=== PATIENT | female | born 1960 | race Two or more races ===

== ENCOUNTER 2024-10-24 09:00 | Inpatient (IN) | payer BC ==
[~2024-10-24] VITALS: Ht 162.6 cm; Wt 71.7 kg
[2024-10-24] MEDS: ONDANSETRON HCL 4MG/2ML INJ IV STA (09:51)
[2024-10-24] MEDS: MORPHINE SULFATE 4 MG/ML INJ (FOR IV/IM USE) IV STA ×2 (10:06→11:00)
[2024-10-24 11:01] LABS: CHLORIDE 93 mEq/L (98-107); POTASSIUM 3.4 mEq/L (3.5-5.1); SODIUM 134 mEq/L (136-145)
[2024-10-24 11:02] LABS: CARBON DIOXIDE 28 mEq/L (21-32)
[2024-10-24 11:03] LABS: CALCIUM 9.1 mg/dL (8.7-10.4)
[2024-10-24 11:07] LABS: CREATININE 0.5 mg/dL (0.6-1.0); GLUCOSE 105 mg/dL (70-105)
[2024-10-24 11:08] LABS: UREA NITROGEN BLOOD 7 mg/dL (9-23)
[2024-10-24 11:11] LABS: BASOPHILS % 0.9 % (0.0-2.0); EOSINOPHILS % 0.1 % (0.0-5.0); HEMATOCRIT. 38.3 % (36.0-48.0); HEMOGLOBIN. 12.7 g/dL (12.0-16.0); LYMPHOCYTES % 9.5 % (20.0-50.0); MEAN CORPUSCULAR HEMOGLOBIN 30.6 pg (28.0-32.0); MEAN CORPUSCULAR HGB CONC 33.1 g/dL (31.0-37.0); MEAN CORPUSCULAR VOLUME 92.4 fL (81.0-99.0); MEAN PLATELET VOLUME 7.7 fl (7.4-10.4); MONOCYTES % 6.3 % (2.0-8.0); NEUTROPHILS % 83.2 % (40.0-76.0); PLATELET 243 x1000/uL (130-400); RED BLOOD CELL COUNT 4.14 mill/uL (4.2-5.4); RED CELL DISTRIBUTION WIDTH 15.6 % (11.6-14.6); WHITE BLOOD COUNT 4.8 x1000/uL (4.5-11.0)
[2024-10-24 11:22] LABS: PROTHROMBIN TIME 10.8 sec (9.6-11.0)
[2024-10-24 12:00] VITALS: BP 140/92; PULSE 85; RESP 20; TEMP 36; O2SAT 95
[2024-10-24] MEDS ORDERED: MAGNESIUM/ALUMINUM HYDROXIDE/SIMETHICONE 30ML UDC PO PRN (12:15)
[2024-10-24] MEDS ORDERED: ACETAMINOPHEN 325MG TABLET PO PRN ×2 (12:15)
[2024-10-24] MEDS ORDERED: GUAIFENESIN 200MG/10ML SUGAR FREE UDC PO PRN (12:15)
[2024-10-24] MEDS ORDERED: IPRATROPIUM/ALBUTEROL 0.5-3(2.5)MG/3ML NEB HHN PRN (12:15)
[2024-10-24] MEDS: SODIUM CHLORIDE 0.9% 1,000 ML IV SCH (12:20)
[2024-10-24] MEDS: POTASSIUM CHLORIDE 20MEQ TABLET SR PO NR (12:20)
[2024-10-24] MEDS ORDERED: NALOXONE HCL 0.4MG/ML VIAL IV PRN (12:30)
[2024-10-24 13:14] VITALS: BP 140/92; PULSE 85; RESP 18; TEMP 36
[2024-10-24] MEDS: HYDROCODONE/ACETAMINOPHEN 5/325MG TABLET PO PRN (14:45)
[2024-10-24] MEDS: ONDANSETRON HCL 4MG/2ML INJ IV PRN (15:32)
[2024-10-24] MEDS: MORPHINE SULFATE 2 MG/ML INJ (NOT FOR IM USE) IV PRN (15:33)
[2024-10-24 16:00] VITALS: BP 148/65
[2024-10-24 17:38] LABS: CREATINE KINASE 218 IU/L (34-145); CREATINE KINASE MB FRACTION 5.3 ng/mL (0.5-3.6); TROPONIN I HIGH SENSITIVITY 5 ng/L (3.0-34)
[2024-10-24] MEDS: ALENDRONATE SODIUM 35MG TABLET PO SCH (18:37)
[2024-10-24 20:00] VITALS: BP 158/100; PULSE 87; RESP 18; TEMP 36.5; O2SAT 100
[2024-10-24] MEDS: ENOXAPARIN 40MG/0.4ML SYR SUBCUT SCH (20:59)
[2024-10-25] VITALS (7 sets, daily range): BP systolic 139–164; BP diastolic 80–96; PULSE 74–100; RESP 17–20; TEMP 36.4–37.1; O2SAT 97–100
[2024-10-25 00:49] LABS: CREATINE KINASE MB FRACTION 6.3 ng/mL (0.5-3.6)
[2024-10-25 01:55] LABS: CLARITY URINE CLOUDY (CLEAR); GLUCOSE URINE NEGATIVE (NEGATIVE); KETONES URINE 3+ (NEGATIVE); LEUKOCYTE ESTERASE URINE NEGATIVE (NEGATIVE); NITRITE URINE NEGATIVE (NEGATIVE); OCCULT BLOOD URINE NEGATIVE (NEGATIVE); PROTEIN URINE 1+ (NEGATIVE); SPECIFIC GRAVITY URINE 1.018 (1.005-1.030)
[2024-10-25 02:15] LABS: COLOR URINE YELLOW (YELLOW)
[2024-10-25 02:17] LABS: RBC URINE 0-2 /hpf (0-2); SQUAMOUS EPITHELIAL CELL URINE FEW /lpf (RARE/1+); WBC URINE 0-2 /hpf (0-2)
[2024-10-25 02:18] LABS: BACTERIA URINE NONE SEEN
[2024-10-25] MEDS: CLONIDINE 0.1MG TABLET PO PRN (05:06)
[2024-10-25] MEDS ORDERED: POLYMYXIN B SULFATE 500000 UNITS/VIAL ONE (06:48)
[2024-10-25] MEDS ORDERED: VANCOMYCIN HCL 1GM VIAL ONE (06:48)
[2024-10-25] MEDS ORDERED: LIDOCAINE HCL/EPINEPHRINE 1%-EPI 1:100,000 20ML VIAL ONE (06:49)
[2024-10-25] MEDS ORDERED: HYDRALAZINE 20MG/ML VIAL IV PRN (07:15)
[2024-10-25] MEDS ORDERED: LABETALOL 5MG/ML 4ML INJ IV PRN (07:15)
[2024-10-25] MEDS ORDERED: KETAMINE HCL 50 MG/ML 10ML ONE (07:15)
[2024-10-25] MEDS ORDERED: ONDANSETRON HCL 4MG/2ML INJ IV PRN (07:15)
[2024-10-25] MEDS ORDERED: HYDROMORPHONE HCL/PF 1MG/ML INJ IV PRN ×3 (07:15)
[2024-10-25] MEDS ORDERED: GLYCOPYRROLATE 0.2 MG/ML 2ML VIAL IV PRN (07:15)
[2024-10-25] MEDS ORDERED: DEXAMETHASONE 4MG/ML 1ML VIAL IV PRN (07:15)
[2024-10-25 07:24] LABS: BASOPHILS % 0.4 % (0.0-2.0); EOSINOPHILS % 0.2 % (0.0-5.0); HEMATOCRIT. 35.1 % (36.0-48.0); HEMOGLOBIN. 11.6 g/dL (12.0-16.0); LYMPHOCYTES % 7.8 % (20.0-50.0); MEAN CORPUSCULAR HEMOGLOBIN 30.6 pg (28.0-32.0); MEAN CORPUSCULAR HGB CONC 33.1 g/dL (31.0-37.0); MEAN CORPUSCULAR VOLUME 92.6 fL (81.0-99.0); MEAN PLATELET VOLUME 7.7 fl (7.4-10.4); NEUTROPHILS % 85.6 % (40.0-76.0); PLATELET 214 x1000/uL (130-400); RED BLOOD CELL COUNT 3.79 mill/uL (4.2-5.4); RED CELL DISTRIBUTION WIDTH 15.5 % (11.6-14.6); WHITE BLOOD COUNT 6.5 x1000/uL (4.5-11.0)
[2024-10-25 07:43] LABS: CALCIUM 8.8 mg/dL (8.7-10.4); CARBON DIOXIDE 28 mEq/L (21-32); CHLORIDE 97 mEq/L (98-107); POTASSIUM 3.8 mEq/L (3.5-5.1); SODIUM 135 mEq/L (136-145)
[2024-10-25 07:48] LABS: CREATININE 0.5 mg/dL (0.6-1.0)
[2024-10-25 07:49] LABS: GLUCOSE 117 mg/dL (70-105); LDL CHOLESTEROL 57 mg/dL (5-100); TRIGLYCERIDE 51 mg/dL (0-150); UREA NITROGEN BLOOD 6 mg/dL (9-23)
[2024-10-25 07:51] LABS: CHOLESTEROL 202 mg/dL (<200); HDL CHOLESTEROL 117 mg/dL (>65)
[2024-10-25 07:54] LABS: T4 FREE 1.02 ng/dL (0.89-1.76)
[2024-10-25 07:55] LABS: THYROID STIMULATING HORMONE 1.18 uIU/mL (0.55-4.78)
[2024-10-25] MEDS ORDERED: SUGAMMADEX SODIUM 200MG/2ML VIAL IV ONE (08:39)
[2024-10-25] MEDS: ASPIRIN 81MG EC TABLET PO SCH (09:00)
[2024-10-25] MEDS: CEFAZOLIN 2GM/100ML 100 ML IV SCH (13:43)
[2024-10-25] MEDS ORDERED: CEFAZOLIN SODIUM 2000MG/VIAL IJ SCH (14:00)
[2024-10-25] MEDS ORDERED: GABA-534 PO (16:30)
[2024-10-25] MEDS ORDERED: BUPR2TAB SL (16:32)
[2024-10-25] MEDS ORDERED: OXYC10TA48 PO (16:32)
[2024-10-25] MEDS ORDERED: DULO60CA64 PO (16:32)
[2024-10-25] MEDS: AMLODIPINE 5MG TABLET PO SCH (20:51)
[2024-10-25] MEDS: GABAPENTIN 400MG CAPSULE PO SCH (21:03)
[2024-10-26 04:00] VITALS: BP 138/66; PULSE 75; RESP 20; TEMP 36.7; O2SAT 99
[2024-10-26 05:13] LABS: CLARITY URINE CLEAR (CLEAR); COLOR URINE YELLOW (YELLOW); GLUCOSE URINE NEGATIVE (NEGATIVE); KETONES URINE NEGATIVE (NEGATIVE); LEUKOCYTE ESTERASE URINE NEGATIVE (NEGATIVE); NITRITE URINE NEGATIVE (NEGATIVE); OCCULT BLOOD URINE NEGATIVE (NEGATIVE); PH URINE 6.5 (4.5-8.0); PROTEIN URINE NEGATIVE (NEGATIVE); SPECIFIC GRAVITY URINE 1.007 (1.005-1.030); UROBILINOGEN URINE 0.2 E.U./dL (0.2-1.0)
[2024-10-26 08:00] VITALS: BP 117/72; PULSE 78; RESP 18; TEMP 36.4; O2SAT 99
[2024-10-26] MEDS: MORPHINE SULFATE 4 MG/ML INJ (FOR IV/IM USE) IV PRN (09:29)
[2024-10-26 11:39] LABS: BASOPHILS % 0.4 % (0.0-2.0); EOSINOPHILS % 0.1 % (0.0-5.0); HEMATOCRIT. 28.4 % (36.0-48.0); HEMOGLOBIN. 9.3 g/dL (12.0-16.0); MEAN CORPUSCULAR HGB CONC 32.9 g/dL (31.0-37.0); MEAN CORPUSCULAR VOLUME 94.2 fL (81.0-99.0); MEAN PLATELET VOLUME 8.1 fl (7.4-10.4); MONOCYTES % 7.8 % (2.0-8.0); NEUTROPHILS % 83.7 % (40.0-76.0); PLATELET 209 x1000/uL (130-400); RED BLOOD CELL COUNT 3.01 mill/uL (4.2-5.4); RED CELL DISTRIBUTION WIDTH 15.6 % (11.6-14.6)
[2024-10-26 11:57] LABS: CARBON DIOXIDE 26 mEq/L (21-32); CHLORIDE 97 mEq/L (98-107); POTASSIUM 3.1 mEq/L (3.5-5.1); SODIUM 135 mEq/L (136-145)
[2024-10-26 11:58] LABS: CALCIUM 8.1 mg/dL (8.7-10.4)
[2024-10-26 12:00] VITALS: BP 125/70; PULSE 90; TEMP 36.6; O2SAT 96
[2024-10-26 12:02] LABS: CREATININE 0.5 mg/dL (0.6-1.0)
[2024-10-26 12:03] LABS: GLUCOSE 104 mg/dL (70-105); UREA NITROGEN BLOOD 7 mg/dL (9-23)
[2024-10-26] MEDS: POTASSIUM CHLORIDE 20MEQ TABLET SR PO NR (12:30)
[2024-10-26] MEDS: GABAPENTIN 400MG CAPSULE PO SCH (14:11)
[2024-10-26 16:00] VITALS: BP 141/79; PULSE 96; RESP 18; TEMP 36.6; O2SAT 95
[2024-10-26 20:00] VITALS: BP 126/72; PULSE 92; RESP 19; TEMP 37.1; O2SAT 95
[2024-10-26] MEDS: DULOXETINE HCL 30MG DR CAPSULE PO SCH (21:01)
[2024-10-26] MEDS: OXYCODONE HCL 5MG TABLET PO PRN (21:02)
[2024-10-27] VITALS: BP 123/60; PULSE 81; RESP 18; TEMP 36.4; O2SAT 95
[2024-10-27 04:00] VITALS: BP 120/59; PULSE 84; RESP 18; TEMP 36.4; O2SAT 96
[2024-10-27 08:00] VITALS: BP 102/60; PULSE 73; RESP 16; TEMP 36.4; O2SAT 98
[2024-10-27 12:00] VITALS: BP 116/67; PULSE 107; RESP 16; TEMP 36.5; O2SAT 98
[2024-10-27 16:00] VITALS: BP 137/81; PULSE 94; RESP 17; TEMP 36.6; O2SAT 99
[2024-10-27] MEDS: DOCUSATE SODIUM 100MG CAPSULE PO PRN (17:18)
[2024-10-27 20:00] VITALS: BP 115/67; PULSE 97; RESP 18; TEMP 36.4; O2SAT 98
[2024-10-28] VITALS: BP 114/76; PULSE 87; RESP 16; TEMP 37.1; O2SAT 97
[2024-10-28 04:00] VITALS: BP 120/66; PULSE 89; RESP 19; TEMP 36.7; O2SAT 99
[2024-10-28 08:00] VITALS: BP 129/82; PULSE 97; RESP 18; TEMP 36.2; O2SAT 98
[2024-10-28 12:00] VITALS: BP 137/92; PULSE 100; RESP 18; TEMP 36.4; O2SAT 98
[2024-10-28 16:00] VITALS: BP 137/70; RESP 18; TEMP 36.7; O2SAT 98
[2024-10-28 20:00] VITALS: BP 132/77; PULSE 97; RESP 18; TEMP 36.9; O2SAT 100
[2024-10-29] VITALS: BP 116/67; PULSE 91; RESP 18; TEMP 37.2; O2SAT 100
[2024-10-29 04:00] VITALS: BP 137/73; PULSE 92; RESP 18; TEMP 36.9; O2SAT 94
[2024-10-29 08:00] VITALS: BP 131/80; PULSE 94; RESP 18; TEMP 36.3; O2SAT 100
[2024-10-29 12:00] VITALS: BP 122/76; PULSE 93; RESP 20; TEMP 36.3; O2SAT 98
[2024-10-29 16:00] VITALS: BP 107/71; PULSE 93; RESP 20; TEMP 36.2; O2SAT 95
[2024-10-29 20:00] VITALS: BP 124/81; PULSE 90; RESP 20; TEMP 36.3; O2SAT 98
[2024-10-29] MEDS: MORPHINE SULFATE 2 MG/ML INJ (NOT FOR IM USE) IV PRN (23:43)
[2024-10-30] VITALS: BP 144/69; PULSE 86; RESP 20; TEMP 36.4; O2SAT 99
[2024-10-30 04:00] VITALS: BP 101/62; PULSE 77; RESP 18; TEMP 36.7; O2SAT 95
[2024-10-30 07:19] LABS: CARBON DIOXIDE 26 mEq/L (21-32); CHLORIDE 103 mEq/L (98-107); POTASSIUM 3.8 mEq/L (3.5-5.1); SODIUM 136 mEq/L (136-145)
[2024-10-30 07:21] LABS: CALCIUM 8.5 mg/dL (8.7-10.4)
[2024-10-30 07:25] LABS: CREATININE 0.4 mg/dL (0.6-1.0); GLUCOSE 99 mg/dL (70-105)
[2024-10-30 07:26] LABS: UREA NITROGEN BLOOD 8 mg/dL (9-23)
[2024-10-30 07:31] LABS: BASOPHILS % 0.7 % (0.0-2.0); EOSINOPHILS % 3.4 % (0.0-5.0); HEMATOCRIT. 24.8 % (36.0-48.0); HEMOGLOBIN. 8.2 g/dL (12.0-16.0); LYMPHOCYTES % 22.5 % (20.0-50.0); MEAN CORPUSCULAR HEMOGLOBIN 31.1 pg (28.0-32.0); MEAN CORPUSCULAR HGB CONC 33.2 g/dL (31.0-37.0); MEAN CORPUSCULAR VOLUME 93.7 fL (81.0-99.0); MEAN PLATELET VOLUME 7.8 fl (7.4-10.4); MONOCYTES % 14.1 % (2.0-8.0); NEUTROPHILS % 59.3 % (40.0-76.0); PLATELET 375 x1000/uL (130-400); RED BLOOD CELL COUNT 2.65 mill/uL (4.2-5.4); RED CELL DISTRIBUTION WIDTH 16.6 % (11.6-14.6); WHITE BLOOD COUNT 4.2 x1000/uL (4.5-11.0)
[2024-10-30 08:00] VITALS: BP 123/76; PULSE 95; RESP 18; TEMP 36.8; O2SAT 100
[2024-10-30 12:00] VITALS: BP 105/58; PULSE 80; RESP 18; TEMP 36.8; O2SAT 99
[2024-10-30 16:00] VITALS: BP 125/78; PULSE 98; RESP 18; TEMP 37.1; O2SAT 100
[2024-10-30 20:00] VITALS: BP 131/66; PULSE 86; RESP 18; TEMP 36.7; O2SAT 100
[2024-10-31] VITALS: BP 157/83; PULSE 83; RESP 14; TEMP 36.4; O2SAT 100
[2024-10-31 04:00] VITALS: BP 114/64; PULSE 75; RESP 16; TEMP 36.4; O2SAT 95
[2024-10-31] MEDS: ALENDRONATE SODIUM 35MG TABLET PO SCH (05:20)
[2024-10-31 12:00] VITALS: BP 111/77; PULSE 94; RESP 17; TEMP 36.6; O2SAT 99
[2024-10-31] MEDS: MORPHINE SULFATE 4 MG/ML INJ (FOR IV/IM USE) IV PRN (14:47)
[2024-10-31 16:00] VITALS: BP 118/58; PULSE 71; RESP 16; TEMP 37.1; O2SAT 98
[2024-10-31 20:00] VITALS: BP 114/75; PULSE 79; RESP 18; TEMP 36.6; O2SAT 100
[2024-11-01] VITALS: BP 105/64; PULSE 80; RESP 14; TEMP 37.1; O2SAT 98
[2024-11-01 04:00] VITALS: BP 112/68; PULSE 105; RESP 14; TEMP 36; O2SAT 99
[2024-11-01 08:00] VITALS: BP 124/71; PULSE 87; RESP 18; TEMP 36.6; O2SAT 98
[2024-11-01 12:00] VITALS: BP 121/69; PULSE 85; RESP 19; TEMP 36.7; O2SAT 99
[2024-11-01 16:00] VITALS: BP 123/65; PULSE 83; RESP 18; TEMP 36.7; O2SAT 99
[2024-11-01 16:22] VITALS: BP 121/69; PULSE 85; TEMP 98; O2SAT 99
[2024-11-02] VITALS: BP 123/72; PULSE 80; RESP 16; TEMP 36.3; O2SAT 99
[2024-11-02 04:00] VITALS: BP 123/74; PULSE 82; RESP 16; TEMP 36.5; O2SAT 99
[2024-11-02 08:00] VITALS: BP 121/86; PULSE 104; RESP 18; TEMP 36.4; O2SAT 98
[2024-11-02 11:01] VITALS: BP 121/86; PULSE 99; TEMP 97.6; O2SAT 98
[2024-11-02 12:00] VITALS: BP 122/81; PULSE 100; RESP 18; TEMP 36.1; O2SAT 98
== END 2024-11-02 16:22 | disposition home health service (06) | DRG 481 ==
LOC: ER 09:00 → EDBEDREQ 10:31 → 8EST 11:26 → EDBEDREQ 11:28 → EDBEDREQTM 11:28
PROVIDERS: ADMIT Internal Medicine; ATTEND Internal Medicine
PROC: 0QS606Z Reposition Right Upper Femur with Intramedullary Internal Fixation Device, Open Approach (ICD-10-PCS; principal; 2024-10-25)
DX: S72.141A Displaced intertrochanteric fracture of right femur, initial encounter for closed fracture (principal); E87.1 Hypo-osmolality and hyponatremia; E87.6 Hypokalemia; G62.9 Polyneuropathy, unspecified; G89.29 Other chronic pain; M48.061 Spinal stenosis, lumbar region without neurogenic claudication; M54.16 Radiculopathy, lumbar region; W01.0XXA Fall on same level from slipping, tripping and stumbling without subsequent striking against object, initial encounter; R26.9 Unspecified abnormalities of gait and mobility; I10 Essential (primary) hypertension; R53.81 Other malaise; Y93.89 Activity, other specified; Y92.89 Other specified places as the place of occurrence of the external cause; Y99.8 Other external cause status; Z79.83 Long term (current) use of bisphosphonates; Z79.899 Other long term (current) drug therapy; Z87.891 Personal history of nicotine dependence; Z98.84 Bariatric surgery status; Z56.0 Unemployment, unspecified
CPT/HCPCS: 36415; 73502; 76000; 80048; 80061; 81003; 82550; 82553; 84439; 84443; 84484; 85025; 93005; 96374; 96375; 96376; 97110; 97116; 97162; 97166; 97530; 97535; 99285; A4606; J0690; J1650; J2004; J2270; J2405; J3370; J3490; J7030; C1713